=== PATIENT | male | born 1975 | race Caucasian/White ===

== ENCOUNTER 2018-11-20 18:50 | Emergency (ER) | payer MEDICAID, MEDICARE ==
[~2018-11-20 18:50] MED LIST: DOXY100T2 PO
== END 2018-11-20 19:24 | disposition left against medical advice (07) ==
LOC: EDUNIT# 18:50 → ER 18:51
DX: Z21 Asymptomatic human immunodeficiency virus [HIV] infection status (principal)

== ENCOUNTER 2019-08-02 04:48 | Emergency (ER) | payer MEDICAID ==
[~2019-08-02] VITALS: Ht 177 cm; Wt 83.0 kg
[2019-08-02] MEDS ORDERED: HYDROcodone/APAP 5 MG/325 MG (LORTAB) TAB PO ONE (05:30)
--- NOTE | 2019-08-02 05:35 | ED Psychosocial ---
General Stated Complaint: BODY PAIN Source: patient Exam Limitations: no limitations History of Present Illness Date Seen by Provider: August 02, 2019 Time Seen by Provider: 05:23 Initial Comments Patient presents to ER by private conveyance with chief complaint that he is bipolar and middle of a manic phase the past couple weeks. He says yesterday he got with his boyfriend attempting to kill his boyfriend's father as well as suicide. The patient himself denies suicidal, homicidal ideation. He says he has a hormone replacement that he takes for HIV prescribed by Donna Mccauley at in [place]. That medications been on for the past year causes body aches which are quite severe. He says in the past the only thing that has helped is hydrocodone. He is driving out Saturday to see his provider. He denies any trauma or strenuous activities. He says he takes Vyvanse, Latuda and doxepin. He says is not taking the doxepin presently is working on weaning off of it. Allergies and Home Medications Allergies Coded Allergies: No Known Drug Allergies (Unverified , 07/22/15) Home Medications Doxycycline Hyclate 100 Mg Tablet, 100 MG PO BID Prescribed by: MALCOLM MARIN on 07/22/15 1044 Patient Home Medication List Home Medication List Reviewed: Yes Review of Systems Constitutional: No chills, No diaphoresis, No fever EENTM: No ear discharge, No hearing loss, No ear pain Respiratory: No cough, No short of breath Cardiovascular: No chest pain, No edema Gastrointestinal: No abdominal pain, No nausea, No vomiting Genitourinary: No discharge, No dysuria Musculoskeletal: No back pain, No joint pain All Other Systems Reviewed Negative Unless Noted: Yes Past Nnskbkv-Pkucjr-Ljiqwe Hx Patient Social History Alcohol Use: Denies Use Recreational Drug Use: No Smoking Status: Never a Smoker Recent Foreign Travel: No Contact w/Someone Who Travel: No Past Medical History Reproductive Disorders: No HIV/AIDS: Yes Adverse Reaction/Blood Tranf: No Physical Exam Vital Signs - First Documented 08/02/19 08/02/19 05:19 06:13 Temp 36.5 Pulse 99 Resp 20 B/P (MAP) 129/88 (102) Pulse Ox 100 O2 Delivery Room Air Capillary Refill : Height, Weight, BMI Height: 5'9" Weight: 180lbs. oz. [id number]; BMI Method:Estimated General Appearance: WD/WN, mild distress HEENT: PERRL/EOMI, pharynx normal Respiratory: no respiratory distress, no accessory muscle use Cardiovascular: normal peripheral pulses, regular rate, rhythm Peripheral Pulses: 2+ Radial Pulses (R), 2+ Radial Pulses (L) Gastrointestinal: non tender, soft Neurologic/Psychiatric: alert, oriented x 3, other (agitated, leaning against the bed but normal ambulation) Appearance/Memory: appropriate appearance, appropriate insight, neat Behavior/Eye Contact: cooperative, good eye contact, increased rate of speech Thoughts/Hallucinations: no apparent hallucination; No delusions Skin: normal color, warm/dry Progress/Results/Core Measures Results/Orders My Orders Orders - HARMEET DANIELLE Hydrocodone/Apap 5/325 Tablet (Lortab 5 (08/02/19 05:30) Medications Given in ED Current Medications Medications Dose Ordered Sig/Payam Route Start Time Stop Time Status Last Admin Dose Admin Acetaminophen/ Hydrocodone Bitart 1 tab ONCE ONCE PO 08/02/19 05:30 08/02/19 05:32 DC 08/02/19 05:42 1 TAB Vital Signs/I&O 08/02/19 08/02/19 05:19 06:13 Temp 36.5 36.5 Pulse 99 90 Resp 20 18 B/P (MAP) 129/88 (102) 125/85 (102) Pulse Ox 100 O2 Delivery Room Air Room Air Progress Progress Note : Time: 06:09 Progress Note Gave the patient a tablet of [place] and then after 20-30 minutes went in to reexamine him. His pain is under better control. He would like some [place] for the next 3 days to go see his doctor on Saturday now. We have declined to prescribe any narcotics outside of the ER and he says he understands. He says he is ready to go home and follow-up with his primary care doctor on Saturday. He has aseptic vital signs so we're going to allow this. The patient has declined any further workup or examination at this time. Departure Impression Primary Impression: Adverse effect hormone Additional Impression: Generalized body aches Disposition: HOME, SELF-CARE Condition: Improved Departure-Patient Inst. Decision time for Depature: 06:10 Referrals: NO,LOCAL PHYSICIAN (PCP/Family) Primary Care Physician Patient Instructions: Chronic Pain (DC) Add. Discharge Instructions: Plan to follow up with your primary care doctor. Return to the ER having chest p ain shortness of breath or other worrisome symptoms. HARMEET DANIELLE August 02, 2019 05:35
[2019-08-02 06:13] VITALS: BP 125/85
== END 2019-08-02 06:14 | disposition home or self-care (01) ==
LOC: EDUNIT# 04:48 → ER 04:50
DX: R52 Pain, unspecified (principal); T38.805A Adverse effect of unspecified hormones and synthetic substitutes, initial encounter; Z21 Asymptomatic human immunodeficiency virus [HIV] infection status
CPT/HCPCS: 99283

== ENCOUNTER 2020-05-17 00:05 | Emergency (ER) | payer BC, MEDICAID ==
[~2020-05-17] VITALS: Ht 177.8 cm; Wt 92.5 kg
[2020-05-17 00:15] VITALS: BP 161/106
--- NOTE | 2020-05-17 00:39 | ED General ---
General Chief Complaint: General Problems/Pain Stated Complaint: ALLERGIC REACTOIN TO MEDICATION Source of Information: Patient (PT IS DIFFICULT HISTORIAN--SPEECH EXTREMELY RAPID, UNABLE TO KEEP ON SUBJECT, CONSTANT MOVEMENTS) History of Present Illness Date Seen by Provider: May 17, 2020 Time Seen by Provider: 00:17 Initial Comments PT ARRIVES VIA POV STATES HE IS "HAVING A REACTION TO "SEROSTIM"" --HUMAN GROWTH HORMONE TREATMENT STATES HE HAS HAD SWELLING FOR THE LAST 7 DAYS AND HE "CAN'T TAKE IT ANY MORE" --HAS NOT ATTEMPTED TO CONTACT HIS DR AT ANY TIME FOR THIS PROBLEM. STATES HE GOT PRESCRIPTION FILLED 05/03/20 AND HAS BEEN HAVING THIS PROBLEM SINCE -- HOWEVER, PER MED RECONCILIATION, PT HAS BEEN TAKING THIS MEDICATION SIN CE LAST JUNE. NO DOSE CHANGE C/O "SWELLING ALL OVER MY BODY" --NO SWELLING TO LIPS, TONGUE OR THROAT OR FACE NO DIFFICULTY BREATHING, OR TALKING OR SWALLOWING NO RASH NO ITCHING NO CHEST PAIN NO GI SYMPTOMS NO FEVER/SWEATS/CHILLS NO DIZZINESS OR SYNCOPE NO PALPITATIONS NO NEW MEDICATIONS PT BEING TREATED FOR HIV, ALSO HAS MANIC-DEPRESSION. PCP: DR. LEMUS AND DR. SERAFIN SCHWAB[facility] [place] Allergies and Home Medications Allergies Coded Allergies: No Known Drug Allergies (Unverified , 07/22/15) Home Medications Doxycycline Hyclate 100 Mg Tablet, 100 MG PO BID Prescribed by: MALCOLM MARIN on 07/22/15 1044 Patient Home Medication List Home Medication List Reviewed: Yes Review of Systems Review of Systems Constitutional: no symptoms reported EENTM: no symptoms reported Respiratory: no symptoms reported Cardiovascular: No chest pain; edema; No palpitations, No syncope Gastrointestinal: no symptoms reported; No abdominal pain, No nausea, No vomiting Genitourinary: no symptoms reported Musculoskeletal: see HPI Skin: no symptoms reported Psychiatric/Neurological: Anxiety; Denies Numbness, Denies Paresthesia Hematologic/Lymphatic: No Symptoms Reported Immunological/Allergic: see HPI, HIV/AIDS Past Gidhuva-Fscstd-Ywwamq Hx Past Med/Social Hx: Reviewed and Corrections made Patient Social History Alcohol Use: Denies Use Drug of Choice: DENIES USE Smoking Status: Current Everyday Smoker Type Used: Cigarettes Recent Hopitalizations: No Immunizations Up To Date Tetanus Booster (TDap): Unknown Seasonal Allergies Seasonal Allergies: No Past Medical History Surgeries: Yes (RETINAL SURGERY X 2; RIGHT KNEE SCOPE) Eye Surgery, Orthopedic Respiratory: Yes (STATES HE HAD COVID-19 IN JANUARY 2020) Cardiac: No Neurological: No Reproductive Disorders: No HIV/AIDS: Yes Genitourinary: No Gastrointestinal: No Musculoskeletal: No Endocrine: No HEENT: Yes (RETINAL SURGERY X 2 ) Cancer: No Psychosocial: Yes (OCD; MANIC-DEPRESSION) ADD/ADHD, Sleep Difficulties, Anxiety, Bipolar, Depression Integumentary: No Blood Disorders: No Adverse Reaction/Blood Tranf: No Physical Exam Vital Signs Vital Signs - First Documented 05/17/20 00:15 Temp 36.4 Pulse 111 Resp 22 B/P (MAP) 161/106 (124) Pulse Ox 96 O2 Delivery Room Air Capillary Refill : Height, Weight, BMI Height: 5'9" Weight: 180lbs. oz. 81.105141sr; 26.00 BMI Method:Estimated General Appearance: Anxious, Other (EXTREMELY ANXIOUS, CONSTANT MOVEMENTS, UNABLE TO STAND/SIT/LAY STILL. SPEECH VERY RAPID AND ERRATIC AND TANGENTIAL--UNABLE TO KEEP ON SUBJECT. ) HEENT: Other (NO SWELLING TO FACE, LIPS, TONGUE, UVULA OR ORAL MUCOSA) Respiratory: Normal Breath Sounds, No Accessory Muscle Use, No Respiratory Distress Cardiovascular: No Murmur, Tachycardia Gastrointestinal: Non Tender, Soft Extremity: Pedal Edema (1+ EDEMA TO BILATERAL LOWER LEGS. NO EDEMA APPRECIATED ANYWHERE ELSE ON BODY) Neurologic/Psychiatric: Alert, Oriented x3, No Motor/Sensory Deficits, integrity analyst II- XII Norm as Tested, Other (BEHAVIOR NOTED ABOVE) Skin: Normal Color, Warm/Dry; No Rash Progress/Results/Core Measures Suspected Sepsis SIRS Temperature: Pulse: Respiratory Rate: Laboratory Tests 05/17/20 00:25: White Blood Count 6.8 Blood Pressure / Mean: Laboratory Tests 05/17/20 00:25: Creatinine 0.82, Platelet Count 219, Total Bilirubin 0.3 Results/Orders Lab Results Laboratory Tests Test 05/17/20 00:25 Range/Units White Blood Count 6.8 4.3-11.0 10^3/uL Red Blood Count 4.21 L 4.30-5.52 10^6/uL Hemoglobin 13.8 13.3-17.7 g/dL Hematocrit 41 40-54 % Mean Corpuscular Volume 97 80-99 fL Mean Corpuscular Hemoglobin 33 25-34 pg Mean Corpuscular Hemoglobin Concent 34 32-36 g/dL Red Cell Distribution Width 11.9 10.0-14.5 % Platelet Count 219 130-400 10^3/uL Mean Platelet Volume 10.6 9.0-12.2 fL Immature Granulocyte % (Auto) 0 % Neutrophils (%) (Auto) 60 42-75 % Lymphocytes (%) (Auto) 27 12-44 % Monocytes (%) (Auto) 11 0-12 % Eosinophils (%) (Auto) 1 0-10 % Basophils (%) (Auto) 1 0-10 % Neutrophils # (Auto) 4.1 1.8-7.8 10^3/uL Lymphocytes # (Auto) 1.9 1.0-4.0 10^3/uL Monocytes # (Auto) 0.7 0.0-1.0 10^3/uL Eosinophils # (Auto) 0.1 0.0-0.3 10^3/uL Basophils # (Auto) 0.0 0.0-0.1 10^3/uL Immature Granulocyte # (Auto) 0.0 0.0-0.1 10^3/uL Sodium Level 141 135-145 MMOL/L Potassium Level 4.2 3.6-5.0 MMOL/L Chloride Level 105 98-107 MMOL/L Carbon Dioxide Level 27 21-32 MMOL/L Anion Gap 9 5-14 MMOL/L Blood Urea Nitrogen 6 L 7-18 MG/DL Creatinine 0.82 0.60-1.30 MG/DL Estimat Glomerular Filtration Rate > 60 BUN/Creatinine Ratio 7 Glucose Level 83 70-105 MG/DL Calcium Level 9.1 8.5-10.1 MG/DL Corrected Calcium 9.1 8.5-10.1 MG/DL Magnesium Level 2.2 1.6-2.4 MG/DL Total Bilirubin 0.3 0.1-1.0 MG/DL Aspartate Amino Transf (AST/SGOT) 29 5-34 U/L Alanine Aminotransferase (ALT/SGPT) 15 0-55 U/L Alkaline Phosphatase 71 40-136 U/L B-Type Natriuretic Peptide 29.7 <100.0 PG/ML Total Protein 6.5 6.4-8.2 GM/DL Albumin 4.0 3.2-4.5 GM/DL TSH [place] Testing 0.60 0.35-4.94 UIU/ML My Orders Orders - RONEY ROWLEY DO Ed Iv/Invasive Line Start (05/17/20 00:24) Monitor-Rhythm Ecg Trace Only (05/17/20:24) Alcohol (05/17/20:24) BNP (05/17/20:24) Cbc With Automated Diff (05/17/20:24) Comprehensive Metabolic Panel (05/17/20:24) Drug Screen Stat (Urine) (05/17/20:24) Magnesium (05/17/20:24) Thyroid Analyzer (05/17/20:24) Ua Culture If Indicated (05/17/20:24) Vital Signs/I&O 05/17/20 00:15 Temp 36.4 Pulse 111 Resp 22 B/P (MAP) 161/106 (124) Pulse Ox 96 O2 Delivery Room Air Capillary Refill : Progress Note : Progress Note 0045--PT JUST STORMED OUT OF ER YELLING CALLING US ALL "RETARDS" . UNCLEAR WHAT HIS REASON FOR LEAVING IS. IV REMOVED BY NURSE PRIOR TO PT'S LEAVING. Departure Impression Primary Impression: Left against medical advice Disposition: 07 AGAINST MEDICAL ADVICE Condition: Against Medical Advice Departure-Patient Inst. Referrals: NO,LOCAL PHYSICIAN (PCP/Family) Primary Care Physician RONEY ROWLEY DO May 17, 2020 00:39
[2020-05-17 01:04] LABS: BASOPHILS % (AUTO) 1 % (0-10); EOSINOPHILS # (AUTO) 0.1 10^3/uL (0.0-0.3); EOSINOPHILS % (AUTO) 1 % (0-10); HEMATOCRIT 41 % (40-54); HEMOGLOBIN 13.8 g/dL (13.3-17.7); LYMPHOCYTES # (AUTO) 1.9 10^3/uL (1.0-4.0); LYMPHOCYTES % (AUTO) 27 % (12-44); MEAN CORPUSCULAR HEMOGLOBIN 33 pg (25-34); MEAN CORPUSCULAR HGB CONC 34 g/dL (32-36); MEAN CORPUSCULAR VOLUME 97 fL (80-99); MEAN PLATELET VOLUME 10.6 fL (9.0-12.2); MONOCYTES # (AUTO) 0.7 10^3/uL (0.0-1.0); MONOCYTES % (AUTO) 11 % (0-12); NEUTROPHILS # (AUTO) 4.1 10^3/uL (1.8-7.8); NEUTROPHILS % (AUTO) 60 % (42-75); PLATELET COUNT 219 10^3/uL (130-400); WHITE BLOOD COUNT 6.8 10^3/uL (4.3-11.0)
[2020-05-17 01:16] LABS: ALANINE AMINOTRANSFERASE 15 U/L (0-55); ALKALINE PHOSPHATASE 71 U/L (40-136); BILIRUBIN,TOTAL 0.3 MG/DL (0.1-1.0); BUN/CREATININE RATIO 7; CALCIUM 9.1 MG/DL (8.5-10.1); CARBON DIOXIDE 27 MMOL/L (21-32); CHLORIDE 105 MMOL/L (98-107); CREATININE SERUM 0.82 MG/DL (0.60-1.30); GFR ESTIMATED > 60; GLUCOSE 83 MG/DL (70-105); MAGNESIUM 2.2 MG/DL (1.6-2.4); POTASSIUM 4.2 MMOL/L (3.6-5.0); SODIUM 141 MMOL/L (135-145); TOTAL PROTEIN 6.5 GM/DL (6.4-8.2)
== END 2020-05-17 00:42 | disposition left against medical advice (07) ==
LOC: EDUNIT# 00:05 → ER 00:08
DX: R60.9 Edema, unspecified (principal); T38.815A Adverse effect of anterior pituitary [adenohypophyseal] hormones, initial encounter; I10 Essential (primary) hypertension; F17.210 Nicotine dependence, cigarettes, uncomplicated
CPT/HCPCS: 80053; 83735; 83880; 84443; 85025; 93041; 99284; G0480; 36415; 80320